=== PATIENT | male | born 1960 | race Caucasian/White ===

== ENCOUNTER 2016-11-20 13:41 | Emergency (ER) | payer BC ==
[~2016-11-20] VITALS: Ht 162.6 cm; Wt 78.0 kg
[~2016-11-20 13:41] MED LIST: ACET-1172 PO; CIPR-260 PO; FLA250 PO
[2016-11-20 13:44] VITALS: BP_SYST 138
[2016-11-20 14:29] LABS: BASOPHILS # (AUTO) 0.1 K/uL (0.0-0.2); BASOPHILS % (AUTO) 0.7 % (0.0-2.0); EOSINOPHILS # (AUTO) 0.2 K/uL (0.0-0.4); EOSINOPHILS % (AUTO) 1.5 % (0.0-4.0); HEMATOCRIT 42.6 % (36-54); HEMOGLOBIN 14.1 g/dL (14.0-18.0); LYMPHOCYTES # (AUTO) 2.4 K/uL (1.0-5.5); LYMPHOCYTES % (AUTO) 24.2 % (20.5-51.5); MEAN CORPUSCULAR HEMOGLOBIN 29 pg (27-31); MEAN CORPUSCULAR HGB CONC 33 % (32-36); MEAN CORPUSCULAR VOLUME 87 fL (79.0-98.0); MONOCYTES # (AUTO) 0.6 K/uL (0.0-1.0); NEUTROPHILS # (AUTO) 6.7 K/uL (1.8-7.7); NEUTROPHILS % (AUTO) 67.6 % (40.0-70.0); PLATELET COUNT (AUTO) 347 K/uL (130-430); RED BLOOD CELL COUNT(AUTO) 4.89 MIL/uL (4.2-6.2); RED CELL DISTRIBUTION WIDTH 12.9 % (9.0-15.0)
[2016-11-20 14:52] LABS: PROTHROMBIN TIME 10.9 SECS (9.5-12.5)
[2016-11-20 14:53] LABS: ANION GAP 7 (5-15); CALCIUM 9.5 mg/dL (8.4-11.0); CHLORIDE 101 mmol/L (98-107); CREATININE 0.85 mg/dL (0.55-1.30); GLUCOSE 134 mg/dL (70-99); POTASSIUM 3.7 mmol/L (3.5-5.1); SODIUM SERUM 138 mmol/L (136-145); UREA NITROGEN, BLOOD 10 mg/dL (8-21)
[2016-11-20 15:00] LABS: GFR AFRICAN AMERICAN 121 mL/min (>90)
[2016-11-20 15:03] LABS: BARBITURATE, URINE POSITIVE (NEG <=200); BENZODIAZEPINE, URINE NEGATIVE (NEG <=150); BILIRUBIN,URINE NEGATIVE (NEGATIVE); CANNABINOID, URINE NEGATIVE (NEG <=50); CLARITY/URINE CLEAR (CLEAR); COCAINE, URINE NEGATIVE (NEG <=150); COLOR,URINE YELLOW (YELLOW); GLUCOSE,URINE NEGATIVE (NEGATIVE); KETONES,URINE NEGATIVE (NEGATIVE); LEUKOCYTE ESTERASE ,URINE NEGATIVE (NEGATIVE); METHAMPHETAMINES SCREEN,URINE NEGATIVE (NEG <=500); NITRITE, URINE NEGATIVE (NEGATIVE); OPIATE, URINE NEGATIVE (NEG <=100); PHENCYCLIDINE SCREEN,URINE NEGATIVE (NEG <=25); PROTEIN URINE NEGATIVE (NEGATIVE); UR TRICYCLIC ANTIDEPRESSANTS NEGATIVE (NEG <=300); URINE AMPHETAMINE NEGATIVE (NEG <=500); URINE METHADONE NEGATIVE (NEG <=200); URINE OXYCODONE SCREEN NEGATIVE (NEG <=100); URINE PROPOXYPHENE SCREEN NEGATIVE (NEG <=300); UROBILINOGEN,URINE 0.2 (0.2-1.0)
[2016-11-20 15:06] LABS: BLOOD, URINE TRACE (NEGATIVE)
[2016-11-20 15:07] LABS: BACTERIA,URINE FEW /HPF (None Seen); MUCUS,URINE None Seen /LPF (None Seen); RBC,URINE 0-3 /HPF (0-3); WBC,URINE NONE SEEN /HPF (0-3)
[2016-11-20 15:18] LABS: ALANINE AMINOTRANSFERASE 36 U/L (12-78); ALBUMIN 4.1 g/dL (3.4-4.8); ASPARTATE AMINOTRANSFERASE 17 U/L (10-37); FREE T4 (FREE THYROXINE) 0.8 ng/dL (0.6-1.6); TOTAL BILIRUBIN 0.4 mg/dL (0.0-1.0); TOTAL PROTEIN, SERUM 8.5 g/dL (6.4-8.3)
[2016-11-20 15:26] LABS: ALCOHOL, BLOOD < 3 mg/dL (<10)
[2016-11-20 16:20] VITALS: BP_SYST 121
== END 2016-11-20 16:20 | disposition home or self-care (01) ==
LOC: SED 13:41
DX: R20.9 Unspecified disturbances of skin sensation (principal); E11.9 Type 2 diabetes mellitus without complications; I10 Essential (primary) hypertension; F41.9 Anxiety disorder, unspecified; Z86.73 Personal history of transient ischemic attack (TIA), and cerebral infarction without residual deficits
CPT/HCPCS: 36415; 70450; 71010; 74000; 80053; 80307; 81000; 82140; 83605; 83880; 84439; 84484; 85025; 85610; 87040; 93005; 99285; G0482

== ENCOUNTER 2017-04-02 15:17 | Inpatient (IN) | payer BC ==
[~2017-04-02] VITALS: Ht 162.6 cm; Wt 77.1 kg
[2017-04-02 15:27] VITALS: BP_SYST 133
--- NOTE | 2017-04-02 15:35 | NUR ---
Pt placed to ER bed 07, to gown. Pt report given to ANGELY Waddell.
[2017-04-02 15:58] LABS: BASOPHILS # (AUTO) 0.1 K/uL (0.0-0.2); EOSINOPHILS # (AUTO) 0.2 K/uL (0.0-0.4); EOSINOPHILS % (AUTO) 2.2 % (0.0-4.0); HEMATOCRIT 41.9 % (36-54); HEMOGLOBIN 13.7 g/dL (14.0-18.0); LYMPHOCYTES # (AUTO) 2.9 K/uL (1.0-5.5); LYMPHOCYTES % (AUTO) 30.4 % (20.5-51.5); MEAN CORPUSCULAR HEMOGLOBIN 28 pg (27-31); MEAN CORPUSCULAR HGB CONC 33 % (32-36); MEAN CORPUSCULAR VOLUME 86 fL (79.0-98.0); MONOCYTES # (AUTO) 0.6 K/uL (0.0-1.0); MONOCYTES % (AUTO) 6.7 % (1.7-9.3); NEUTROPHILS # (AUTO) 5.7 K/uL (1.8-7.7); NEUTROPHILS % (AUTO) 59.7 % (40.0-70.0); PLATELET COUNT (AUTO) 285 K/uL (130-430); RED BLOOD CELL COUNT(AUTO) 4.85 MIL/uL (4.2-6.2); RED CELL DISTRIBUTION WIDTH 14.4 % (9.0-15.0); WHITE BLOOD COUNT (AUTO) 9.5 K/uL (4.8-10.8)
[2017-04-02 16:02] LABS: CALCIUM 9.3 mg/dL (8.4-11.0); CREATININE 0.7 mg/dL (0.55-1.30)
[2017-04-02 16:06] LABS: PROTHROMBIN TIME 10.7 SECS (9.5-12.5)
[2017-04-02 16:07] LABS: ALBUMIN 4.1 g/dL (3.4-4.8); TOTAL BILIRUBIN 0.5 mg/dL (0.0-1.0)
--- NOTE | 2017-04-02 16:10 | NUR ---
# 20 gauge angiocath placed to LFA. Use of asceptic technique. Opsite placed over site. Blood return noted. Blood for lab drawn from site. Flushed with 10 cc of normal saline. No evidence of infiltration noted. Patient tolerated well.
--- NOTE | 2017-04-02 16:10 | NUR ---
Placed on turn supervisor, blood pressure machine and pulse oximeter. To gown for exam. Side rails up.
--- NOTE | 2017-04-02 16:11 | NUR ---
PT BIB by his ,complaining of rectal bleed x 3 times today,bright red blood,abdomen soft,non-tender.mild pain.PT is AAOX4.no distress noted.skin pink warm.
[2017-04-02] MEDS ORDERED: NACL 0.9% 1,000 ML IV ONE ×2 (16:30→18:00)
[2017-04-02] MEDS ORDERED: PANTOPRAZOLE SODIUM 40 MG/VIAL (PROTONIX) IVP ONE (16:30)
[2017-04-02] MEDS ORDERED: LIP20 PO (17:35)
[2017-04-02] MEDS ORDERED: METF-303 PO (17:35)
[2017-04-02] MEDS ORDERED: ASPI-1077 PO (17:35)
--- NOTE | 2017-04-02 18:00 | NUR ---
Patient will be admitted to [facility]. Admitted to TELE unit. Will go to room 116A. Belongings list completed. Summary report printed. Report will be given at bedside.
--- NOTE | 2017-04-02 18:10 | NUR ---
ADMISSION NOTE Received patient from ER via basilio, received report from NGHIA AU. Patient admitted with diagnosis of GI BLEED. Patient oriented to hospital routine, call light, toileting and safety-patient verbalized understanding.
[2017-04-02 18:20] VITALS: BP_SYST 135
--- NOTE | 2017-04-02 18:31 | NUR ---
paged paged for Dr Rock, dialed . s/w [place], stated Dr Alexandra is on-call for Dr Rock.
--- NOTE | 2017-04-02 18:40 | NUR ---
Closing Note/ MD Rounds Dr. Conroy is currently assessing the patient at the bedside. Spoke with Dr. Stevenson who ordered a colonoscopy for tomorrow. Will have the patient sign the consent. Patient is in stab le condition. NS @50 was started. Will give report to the oncoming nurse.
[2017-04-02] MEDS ORDERED: GOLYTELY / COLYTE SOLUTION 4 LITERS PO ONE (18:45)
[2017-04-02] MEDS ORDERED: ALPRAZolam 0.25 MG TABLET PO PRN (19:00)
--- NOTE | 2017-04-02 20:15 | NUR ---
Patient awake alert , to be NPO @ midnight for GI procedure , patient is aware .
--- NOTE | 2017-04-02 20:21 | NUR ---
Golytely po has been started , tolerated patient does use the bedside commode .
[2017-04-02 20:36] VITALS: BP_SYST 134
--- NOTE | 2017-04-02 22:52 | NUR ---
SBAR Report given to Carina AU .
--- NOTE | 2017-04-02 22:54 | NUR ---
Initial notes Received report from ANGELY Carnes for pt continuity of care. Patient resting in bed at this time. Had a BM, still not clear at this time but patient is continuously drinking the Golytely. Denies pain at this time. Will continue to monitor.
[2017-04-02 23:24] VITALS: BP_SYST 125
--- NOTE | 2017-04-03 | NUR ---
Notes Patient resting in bed. Denies pain at this time. No SOB noted. IV site patent, flushes well. Afebrile. Patient repositioned in bed. Call light within reach. Will continue to monitor.
--- NOTE | 2017-04-03 02:30 | NUR ---
Notes Patient resting in bed at this time. Has had multiple BMs, watery now mostly, yellowish in color. Will do enema in AM as bowel prep. Denies pain at this time. Will continue to monitor.
[2017-04-03 03:05] LABS: HEMATOCRIT 36.3 % (36-54); HEMOGLOBIN 12.3 g/dL (14.0-18.0); MEAN CORPUSCULAR HEMOGLOBIN 29 pg (27-31); MEAN CORPUSCULAR VOLUME 84 fL (79.0-98.0); RED BLOOD CELL COUNT(AUTO) 4.31 MIL/uL (4.2-6.2); WHITE BLOOD COUNT (AUTO) 8.2 K/uL (4.8-10.8)
[2017-04-03 03:06] LABS: BASOPHILS % (AUTO) 0.5 % (0.0-2.0); EOSINOPHILS # (AUTO) 0.1 K/uL (0.0-0.4); EOSINOPHILS % (AUTO) 0.9 % (0.0-4.0); LYMPHOCYTES # (AUTO) 1.8 K/uL (1.0-5.5); LYMPHOCYTES % (AUTO) 21.4 % (20.5-51.5); MEAN CORPUSCULAR HGB CONC 34 % (32-36); MONOCYTES # (AUTO) 0.6 K/uL (0.0-1.0); MONOCYTES % (AUTO) 6.7 % (1.7-9.3); NEUTROPHILS # (AUTO) 5.7 K/uL (1.8-7.7); NEUTROPHILS % (AUTO) 70.5 % (40.0-70.0); PLATELET COUNT (AUTO) 238 K/uL (130-430); RED CELL DISTRIBUTION WIDTH 14.6 % (9.0-15.0)
--- NOTE | 2017-04-03 04:05 | NUR ---
Notes Patient resting in bed. Denies pain at this time. No SOB noted. IV site patent, flushes well. Afebrile. Patient repositioned in bed. Call light within reach. Will continue to monitor. Addendum: 04/03/17 at 0429 by Renetta Don RN Patient stool is now very light yellow in color, watery, no formed stool. Finished the whole [employer] container.
[2017-04-03 04:31] VITALS: BP_SYST 125
--- NOTE | 2017-04-03 06:37 | NUR ---
Closing Notes Patients stool is watery clear, no chunks of solid poop, for pending colonoscopy today. Patient denies pain. No SOB noted. IV site patent, flushes well. Goals met. Call light within reach. Will continue to monitor.
[2017-04-03] MEDS ORDERED: fentaNYL CITRATE/PF 100 MCG/2 ML AMP ONE (07:05)
[2017-04-03] MEDS ORDERED: MIDAZOLAM HCL 5 MG/5 ML VIAL ONE ×2 (07:05→07:06)
[2017-04-03] MEDS ORDERED: SIMETHICONE 40 MG/0.6 ML ML ONE (07:06)
[2017-04-03 07:10] LABS: ALBUMIN 3.4 g/dL (3.4-4.8); CALCIUM 8.8 mg/dL (8.4-11.0); CREATININE 0.73 mg/dL (0.55-1.30); POTASSIUM 4.8 mmol/L (3.5-5.1); TOTAL BILIRUBIN 0.7 mg/dL (0.0-1.0)
--- NOTE | 2017-04-03 07:25 | NUR ---
AM ROUNDS: PATIENT IN THE ROOM.AWAKE,ALERT AND ORIENTED X4. FOR COLONOSCOPY TODAY.NPO POST MIDNIGHT,PATIENT VERBALIZED UNDERSTANDING.CALL LIGHT WITH IN REACH. REPORT GIVEN BY NIGHT NURSE DUANE.DENIES ANY PAIN.
[2017-04-03] MEDS ORDERED: fentaNYL CITRATE/PF 100 MCG/2 ML AMP IVP ONE ×2 (08:16→08:20)
[2017-04-03] MEDS ORDERED: MIDAZOLAM HCL 5 MG/5 ML VIAL IVP ONE ×2 (08:18→08:22)
--- NOTE | 2017-04-03 08:30 | NUR ---
GI: PATIENT WENT TO GI LAB FOR COLONOSCOPY.
--- NOTE | 2017-04-03 09:19 | NUR ---
RN ROUNDS: PATIENT JUST GOT BACK FROM GI LAB,VITAL SIGNS TAKEN ,AFEBRILE AND STABLE. AWAKE, AT BEDSIDE. COLONOSCOPY DONE. TO SEE ORDERS.
[2017-04-03 09:39] VITALS: BP_SYST 114
--- NOTE | 2017-04-03 11:30 | NUR ---
BLOOD SUGAR: BLOOD SUGAR TAKEN,NO INSULIN COVERAGE NEEDED ORDERED.
[2017-04-03 12:19] VITALS: BP_SYST 117
--- NOTE | 2017-04-03 12:49 | NUR ---
MEAL: PATIENT HAD SOFT BLAND LOW FIBER DIET. STILL EATING HIS LUNCH SLOWLY. NO NAUSEA/VOMITING THIS TIME.
--- NOTE | 2017-04-03 13:21 | NUR ---
DC TELE: DOWNGRADE TO MEDICAL SURGICAL ORDERED.
--- NOTE | 2017-04-03 14:19 | NUR ---
RN ROUNDING: PATIENT RESTING. NO NAUSEA AND NO VOMITING NOTED. NO NEEDS THIS TIME.
--- NOTE | 2017-04-03 15:52 | NUR ---
PAGED: CALLED DR MOSLEY FOR VERIFICATION OF ORDERS C/O EXCHANGE VICTOR M.
[2017-04-03 16:06] VITALS: BP_SYST 105
--- NOTE | 2017-04-03 16:15 | NUR ---
NEW ORDERS: SPOKE WITH DR MOSLEY WITH ORDERS H&H 1 NOW THEN EVERY 8HOURS TILL MD DISCONTINUE IT. INFORMED PATIENT ABOUT MD'S PLAN OBSERVE FOR ANY BLEEDING X 24HOURS AND H&H Q 8HOURS ORDERED.
[2017-04-03 16:33] LABS: HEMATOCRIT 37.6 % (36-54); HEMOGLOBIN 12.2 g/dL (14.0-18.0)
--- NOTE | 2017-04-03 16:56 | NUR ---
BLOOD SUGAR: BLOOD SUGAR TAKEN,NO INSULIN ORDERED BY .
--- NOTE | 2017-04-03 18:43 | NUR ---
CLOSING NOTES: STABLE. TOLERATED DINNER. CONTINUE TO MONITOR H&H Q 8HOURS PER MD. IVF TO BE FINISHED AND TO SALINE LOCK ORDERED.
[2017-04-03 19:40] VITALS: BP_SYST 120
--- NOTE | 2017-04-03 19:41 | NUR ---
OPENING NOTES PATIENT IS A/OX4. NO SIGNS OF DISTRESS. VITAL SIGNS ARE STABLE. BREATHING IS NON LABORED. PATIENT HAS NO COMPLAINTS OF PAIN. PATIENT STATED THE HE HAD ONE BOWEL MOVEMENT TODAY WITH NO BLEEDING. IV IS PATENT. SAFETY MEASURES ARE IN PLACE. CALL LIGHT IS WITHIN REACH. WILL CONTINUE TO MONITOR.
--- NOTE | 2017-04-03 21:00 | NUR ---
PATIENT CARE PATIENT WAS GIVEN A WARM BLANKET FOR COMFORT.
--- NOTE | 2017-04-03 21:17 | NUR ---
PATIENT CARE PATIENT WAS GIVEN AN ICE PACK TO PUT ON RIGHT SIDE OF FACE. Addendum: 04/03/17 at 2118 by Beata Dyer RN VOID ENTRY. CHARTED ON WRONG PATIENT.
--- NOTE | 2017-04-03 23:00 | NUR ---
ROUNDS PATIENT IS IN BED WATCHING TV. NO SIGNS OF DISTRESS. BREATHING IS NON LABORED. SAFETY MEASURES ARE IN PLACE. WILL CONTINUE TO MONITOR.
[2017-04-03 23:37] VITALS: BP_SYST 106
[2017-04-04 00:57] LABS: HEMATOCRIT 35.8 % (36-54); HEMOGLOBIN 11.8 g/dL (14.0-18.0)
--- NOTE | 2017-04-04 01:41 | NUR ---
ROUNDS PATIENT IS IN BED SLEEPING. BREATHING IS NON LABORED. NO SIGNS OF DISTRESS. CALL LIGHT IS WITHIN REACH. SAFETY MEASURES ARE IN PLACE. WILL CONTINUE TO MONITOR.
[2017-04-04 04:05] VITALS: BP_SYST 110
--- NOTE | 2017-04-04 04:05 | NUR ---
ROUNDS PATIENT IS IN BED SLEEPING COMFORTABLY. NO SIGNS OF DISTRESS. BREATHING IS NON LABORED. VITAL SIGNS ARE STABLE. CALL LIGHT IS WITHIN REACH. SAFETY MEASURES ARE IN PLACE. WILL CONTINUE TO MONITOR.
--- NOTE | 2017-04-04 06:34 | NUR ---
CLOSING NOTES PATIENT IS IN BED SLEEPING. BREATHING IS NON LABORED. NO SIGNS OF DISTRESS. SAFETY MEASURES ARE IN PLACE. WILL ENDORSE ALL CARE TO THE MORNING NURSE.
--- NOTE | 2017-04-04 07:30 | NUR ---
Morning Rounds Report given by rn shift mgr nurse. Patient asleep and in no distress. Bed lowest position for safety and call light in reach.
[2017-04-04 08:40] VITALS: BP_SYST 125
[2017-04-04 08:52] LABS: HEMATOCRIT 37.4 % (36-54); HEMOGLOBIN 12.5 g/dL (14.0-18.0)
--- NOTE | 2017-04-04 09:00 | NUR ---
ROUNDS PATIENT SITTING UP IN BED COMFORTABLY WATCHING TELEVISION. VITAL SIGNS TAKEN, NO ACTIVE BLEEDING NOTED, NO BOWEL MOVEMENT AT THIS TIME.
[2017-04-04 10:54] VITALS: BP_SYST 127
--- NOTE | 2017-04-04 11:30 | NUR ---
DISCHARGE NOTES Transitional care documents provided to patient. Education and discharge instructions verbalized and provided handouts to patient. Patient verbalized understanding. and son at bedside to assist with discharge home. IV access removed, no complications or bleeding noted, pressure gauze applied. RESIDENCE HALL DIRECTOR wheeled patient to lobby safely. All belongings checked and returned to patient.
[2017-04-04 12:18] VITALS: BP_SYST 118
[2017-04-04] MEDS ORDERED: metFORMIN HCL 500 MG TABLET PO SCH (21:00)
[2017-04-05] MEDS ORDERED: ATORVASTATIN 20 MG TABLET PO SCH (09:00)
== END 2017-04-04 11:30 | disposition home or self-care (01) | DRG 379 ==
LOC: SED 15:17 → STU 17:49 → SMU 04-03 09:18
PROVIDERS: ADMIT Internal Medicine Cardiovascular Disease; ATTEND Internal Medicine Cardiovascular Disease
PROC: 0DBH8ZX Excision of Cecum, Via Natural or Artificial Opening Endoscopic, Diagnostic (ICD-10-PCS; principal; 2017-04-03 08:10)
DX: K57.33 Diverticulitis of large intestine without perforation or abscess with bleeding (principal); I10 Essential (primary) hypertension; K62.5 Hemorrhage of anus and rectum; D12.0 Benign neoplasm of cecum; E11.9 Type 2 diabetes mellitus without complications; E78.5 Hyperlipidemia, unspecified; F41.9 Anxiety disorder, unspecified; E78.00 Pure hypercholesterolemia, unspecified; Z80.0 Family history of malignant neoplasm of digestive organs; Z86.73 Personal history of transient ischemic attack (TIA), and cerebral infarction without residual deficits; Z87.891 Personal history of nicotine dependence
CPT/HCPCS: 36415; 45380; 71010; 80053; 82962; 85018-TC; 85025; 85610-TC; 85730-TC; 86886; 86900; 86901; 88305; 93005; 96361; 96374; 99285; C9113; J2250; J3010; J7030

== ENCOUNTER 2017-04-06 12:01 | Inpatient (IN) | payer BC ==
[~2017-04-06] VITALS: Ht 162.6 cm; Wt 74.4 kg
[2017-04-06 12:01] VITALS: BP_SYST 125
[~2017-04-06 12:01] MED LIST changes: -ACET-1172 PO; -CIPR-260 PO; -FLA250 PO; +LIP20 PO; +METF-303 PO
[2017-04-06 12:52] LABS: BASOPHILS # (AUTO) 0.1 K/uL (0.0-0.2); BASOPHILS % (AUTO) 0.7 % (0.0-2.0); EOSINOPHILS % (AUTO) 0.6 % (0.0-4.0); HEMATOCRIT 39.5 % (36-54); HEMOGLOBIN 12.5 g/dL (14.0-18.0); LYMPHOCYTES # (AUTO) 1.8 K/uL (1.0-5.5); LYMPHOCYTES % (AUTO) 23.4 % (20.5-51.5); MEAN CORPUSCULAR HEMOGLOBIN 28 pg (27-31); MEAN CORPUSCULAR HGB CONC 32 % (32-36); MEAN CORPUSCULAR VOLUME 88 fL (79.0-98.0); MONOCYTES # (AUTO) 0.4 K/uL (0.0-1.0); NEUTROPHILS # (AUTO) 5.6 K/uL (1.8-7.7); NEUTROPHILS % (AUTO) 70.3 % (40.0-70.0); PLATELET COUNT (AUTO) 300 K/uL (130-430); RED BLOOD CELL COUNT(AUTO) 4.51 MIL/uL (4.2-6.2); RED CELL DISTRIBUTION WIDTH 14.7 % (9.0-15.0); WHITE BLOOD COUNT (AUTO) 7.9 K/uL (4.8-10.8)
[2017-04-06 13:07] LABS: ALBUMIN 3.9 g/dL (3.4-4.8); CALCIUM 9.4 mg/dL (8.4-11.0); CREATININE 0.95 mg/dL (0.55-1.30); POTASSIUM 4.1 mmol/L (3.5-5.1); TOTAL BILIRUBIN 0.5 mg/dL (0.0-1.0)
[2017-04-06] MEDS ORDERED: FLUO10CA65 PO (14:37)
[2017-04-06] MEDS: NACL 0.9% 1,000 ML IV SCH (15:37)
[2017-04-06] MEDS ORDERED: HEPARIN SODIUM,PORCINE 5000 UNITS/ML VIAL IV ONE (16:00)
[2017-04-06 16:07] VITALS: BP_SYST 127
[2017-04-06 20:00] VITALS: BP_SYST 117
[2017-04-06 20:02] VITALS: BP_SYST 113
[2017-04-06 22:41] LABS: BASOPHILS % (AUTO) 0.5 % (0.0-2.0); EOSINOPHILS # (AUTO) 0.2 K/uL (0.0-0.4); EOSINOPHILS % (AUTO) 2.1 % (0.0-4.0); HEMATOCRIT 36.1 % (36-54); HEMOGLOBIN 11.7 g/dL (14.0-18.0); LYMPHOCYTES # (AUTO) 2.9 K/uL (1.0-5.5); LYMPHOCYTES % (AUTO) 33.1 % (20.5-51.5); MEAN CORPUSCULAR HEMOGLOBIN 28 pg (27-31); MEAN CORPUSCULAR HGB CONC 32 % (32-36); MEAN CORPUSCULAR VOLUME 85 fL (79.0-98.0); MONOCYTES # (AUTO) 0.5 K/uL (0.0-1.0); NEUTROPHILS % (AUTO) 58.3 % (40.0-70.0); PLATELET COUNT (AUTO) 271 K/uL (130-430); RED BLOOD CELL COUNT(AUTO) 4.24 MIL/uL (4.2-6.2); RED CELL DISTRIBUTION WIDTH 14.9 % (9.0-15.0); WHITE BLOOD COUNT (AUTO) 8.6 K/uL (4.8-10.8)
[2017-04-06 23:14] VITALS: BP_SYST 113
[2017-04-07] MEDS: NACL 0.9% 1,000 ML IV SCH ×5 (01:17→21:02)
[2017-04-07 05:53] VITALS: BP_SYST 116
[2017-04-07 07:38] LABS: BASOPHILS # (AUTO) 0.1 K/uL (0.0-0.2); BASOPHILS % (AUTO) 0.7 % (0.0-2.0); EOSINOPHILS # (AUTO) 0.1 K/uL (0.0-0.4); EOSINOPHILS % (AUTO) 1.7 % (0.0-4.0); HEMATOCRIT 34.3 % (36-54); HEMOGLOBIN 11.1 g/dL (14.0-18.0); LYMPHOCYTES # (AUTO) 2.5 K/uL (1.0-5.5); LYMPHOCYTES % (AUTO) 34.5 % (20.5-51.5); MEAN CORPUSCULAR HEMOGLOBIN 28 pg (27-31); MEAN CORPUSCULAR HGB CONC 32 % (32-36); MEAN CORPUSCULAR VOLUME 87 fL (79.0-98.0); MONOCYTES # (AUTO) 0.6 K/uL (0.0-1.0); MONOCYTES % (AUTO) 8.4 % (1.7-9.3); NEUTROPHILS # (AUTO) 3.9 K/uL (1.8-7.7); NEUTROPHILS % (AUTO) 54.7 % (40.0-70.0); PLATELET COUNT (AUTO) 231 K/uL (130-430); RED BLOOD CELL COUNT(AUTO) 3.93 MIL/uL (4.2-6.2); RED CELL DISTRIBUTION WIDTH 14.6 % (9.0-15.0); WHITE BLOOD COUNT (AUTO) 7.2 K/uL (4.8-10.8)
[2017-04-07 08:00] VITALS: BP_SYST 109
[2017-04-07 08:01] LABS: ALBUMIN 3.3 g/dL (3.4-4.8); CALCIUM 8.6 mg/dL (8.4-11.0); CREATININE 0.8 mg/dL (0.55-1.30); POTASSIUM 4.2 mmol/L (3.5-5.1); TOTAL BILIRUBIN 0.5 mg/dL (0.0-1.0)
[2017-04-07] MEDS ORDERED: fentaNYL CITRATE/PF 100 MCG/2 ML AMP ONE (12:20)
[2017-04-07] MEDS ORDERED: MIDAZOLAM HCL 5 MG/5 ML VIAL ONE (12:20)
[2017-04-07 12:41] VITALS: BP_SYST 114
[2017-04-07 13:10] VITALS: BP_SYST 111
[2017-04-07 14:37] LABS: BASOPHILS % (AUTO) 0.6 % (0.0-2.0); EOSINOPHILS # (AUTO) 0.1 K/uL (0.0-0.4); EOSINOPHILS % (AUTO) 0.9 % (0.0-4.0); HEMATOCRIT 36.5 % (36-54); HEMOGLOBIN 11.6 g/dL (14.0-18.0); LYMPHOCYTES # (AUTO) 2.2 K/uL (1.0-5.5); LYMPHOCYTES % (AUTO) 33.8 % (20.5-51.5); MEAN CORPUSCULAR HEMOGLOBIN 28 pg (27-31); MEAN CORPUSCULAR HGB CONC 32 % (32-36); MEAN CORPUSCULAR VOLUME 87 fL (79.0-98.0); MONOCYTES # (AUTO) 0.4 K/uL (0.0-1.0); MONOCYTES % (AUTO) 6.1 % (1.7-9.3); NEUTROPHILS # (AUTO) 3.9 K/uL (1.8-7.7); NEUTROPHILS % (AUTO) 58.6 % (40.0-70.0); PLATELET COUNT (AUTO) 260 K/uL (130-430); RED CELL DISTRIBUTION WIDTH 14.7 % (9.0-15.0); WHITE BLOOD COUNT (AUTO) 6.6 K/uL (4.8-10.8)
[2017-04-07 16:46] VITALS: BP_SYST 110
[2017-04-07 19:40] VITALS: BP_SYST 126
[2017-04-08 01:46] VITALS: BP_SYST 112
[2017-04-08] MEDS: NACL 0.9% 1,000 ML IV SCH ×3 (05:08→20:57)
[2017-04-08 05:58] VITALS: BP_SYST 107
[2017-04-08 07:19] LABS: BASOPHILS % (AUTO) 0.6 % (0.0-2.0); EOSINOPHILS # (AUTO) 0.1 K/uL (0.0-0.4); EOSINOPHILS % (AUTO) 1.6 % (0.0-4.0); HEMATOCRIT 36.5 % (36-54); HEMOGLOBIN 11.7 g/dL (14.0-18.0); LYMPHOCYTES # (AUTO) 1.9 K/uL (1.0-5.5); LYMPHOCYTES % (AUTO) 27.9 % (20.5-51.5); MEAN CORPUSCULAR HEMOGLOBIN 28 pg (27-31); MEAN CORPUSCULAR HGB CONC 32 % (32-36); MEAN CORPUSCULAR VOLUME 87 fL (79.0-98.0); MONOCYTES # (AUTO) 0.5 K/uL (0.0-1.0); MONOCYTES % (AUTO) 6.6 % (1.7-9.3); NEUTROPHILS # (AUTO) 4.4 K/uL (1.8-7.7); NEUTROPHILS % (AUTO) 63.3 % (40.0-70.0); PLATELET COUNT (AUTO) 257 K/uL (130-430); RED CELL DISTRIBUTION WIDTH 14.8 % (9.0-15.0); WHITE BLOOD COUNT (AUTO) 6.9 K/uL (4.8-10.8)
[2017-04-08 07:34] LABS: ALBUMIN 3.4 g/dL (3.4-4.8); CALCIUM 9.2 mg/dL (8.4-11.0); CREATININE 0.87 mg/dL (0.55-1.30); POTASSIUM 4.3 mmol/L (3.5-5.1); TOTAL BILIRUBIN 0.5 mg/dL (0.0-1.0)
[2017-04-08 08:00] VITALS: BP_SYST 116
[2017-04-08] MEDS: PANTOPRAZOLE SODIUM 40 MG TAB PO SCH (09:12)
[2017-04-08 12:37] VITALS: BP_SYST 122
[2017-04-08 16:47] VITALS: BP_SYST 117
[2017-04-08 20:00] VITALS: BP_SYST 111
[2017-04-09 00:08] VITALS: BP_SYST 111
[2017-04-09] MEDS: NACL 0.9% 1,000 ML IV SCH ×2 (03:13→09:33)
[2017-04-09 04:18] VITALS: BP_SYST 107
[2017-04-09 07:33] LABS: BASOPHILS % (AUTO) 0.6 % (0.0-2.0); EOSINOPHILS # (AUTO) 0.1 K/uL (0.0-0.4); EOSINOPHILS % (AUTO) 1.7 % (0.0-4.0); HEMATOCRIT 34.9 % (36-54); HEMOGLOBIN 11.3 g/dL (14.0-18.0); LYMPHOCYTES # (AUTO) 2.4 K/uL (1.0-5.5); LYMPHOCYTES % (AUTO) 30.2 % (20.5-51.5); MEAN CORPUSCULAR HEMOGLOBIN 28 pg (27-31); MEAN CORPUSCULAR HGB CONC 32 % (32-36); MEAN CORPUSCULAR VOLUME 87 fL (79.0-98.0); MONOCYTES # (AUTO) 0.5 K/uL (0.0-1.0); MONOCYTES % (AUTO) 6.5 % (1.7-9.3); NEUTROPHILS # (AUTO) 4.8 K/uL (1.8-7.7); PLATELET COUNT (AUTO) 267 K/uL (130-430); RED BLOOD CELL COUNT(AUTO) 4.01 MIL/uL (4.2-6.2); RED CELL DISTRIBUTION WIDTH 14.8 % (9.0-15.0); WHITE BLOOD COUNT (AUTO) 7.9 K/uL (4.8-10.8)
[2017-04-09 08:00] VITALS: BP_SYST 122
[2017-04-09] MEDS: PANTOPRAZOLE SODIUM 40 MG TAB PO SCH (09:31)
[2017-04-09 12:27] VITALS: BP_SYST 109
[2017-04-09 13:07] VITALS: BP_SYST 109
== END 2017-04-09 13:26 | disposition home or self-care (01) | DRG 379 ==
LOC: SED 12:01 → STU 13:58 → SMU 04-08 10:38
PROVIDERS: ADMIT Internal Medicine Cardiovascular Disease; ATTEND Internal Medicine Cardiovascular Disease
PROC: 0DB68ZX Excision of Stomach, Via Natural or Artificial Opening Endoscopic, Diagnostic (ICD-10-PCS; 2017-04-07)
PROC: 0DB98ZX Excision of Duodenum, Via Natural or Artificial Opening Endoscopic, Diagnostic (ICD-10-PCS; principal; 2017-04-07 13:35)
DX: K92.2 Gastrointestinal hemorrhage, unspecified (principal); E11.9 Type 2 diabetes mellitus without complications; E78.5 Hyperlipidemia, unspecified; K29.60 Other gastritis without bleeding; D50.0 Iron deficiency anemia secondary to blood loss (chronic); K57.90 Diverticulosis of intestine, part unspecified, without perforation or abscess without bleeding; Z86.73 Personal history of transient ischemic attack (TIA), and cerebral infarction without residual deficits; Z79.899 Other long term (current) drug therapy
CPT/HCPCS: 36415; 43239; 78278-TC; 80053; 85025; 85610-TC; 85730-TC; 86886; 86900; 86901; 87081; 88305; 88312; 88313; 99285; A9560; J1644; J2250; J3010; J7030